=== PATIENT | female | born 1995 | race African-American/Black ===

== ENCOUNTER 2019-08-06 20:42 | Emergency (ER) | payer SELFPAY ==
[~2019-08-06] VITALS: Ht 162.6 cm; Wt 68.0 kg
[2019-08-07] MEDS ORDERED: CEFTRIAXONE SODIUM 250 MG/VIAL IM ONE (02:45)
[2019-08-07] MEDS ORDERED: AZITHROMYCIN 500 MG TABLET PO ONE (02:45)
[2019-08-07 02:55] VITALS: BP 104/56
== END 2019-08-07 03:11 | disposition home or self-care (01) ==
LOC: ER 20:42
DX: Z11.3 Encounter for screening for infections with a predominantly sexual mode of transmission (principal)
CPT/HCPCS: 81025; 96372; 99283; J0696